=== PATIENT | female | born 2005 | race Caucasian/White ===

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

== ENCOUNTER 2025-02-11 14:30 | Outpatient (RCR) | payer OTHER, SELFPAY ==
--- NOTE | 2025-01-14 16:07 | OPREHPOC ---
Outpatient Therapy Plan of Care This is a Multidisciplinary Plan of Care that may contain components documented by all disciplines (PT, OT, and ST.) PT Problem 1 PT Problem #1 Knowledge Deficit PT Goal 1 Goal / Goal Update *indep with HEP Target Visit 8 PT Problem 2 PT Problem #2 Pain PT Goal 1 Goal / Goal Update *pt report pain at worst of 4/10 Target Visit 8 PT Problem 3 PT Problem #3 Impaired Strength PT Goal 1 Goal / Goal Update increase thoracic/scapular strength- to improve posture and stability to spine * pt perform R and L prone exercises x 20 reps Target Visit 8 PT Goal 2 Goal / Goal Update * pt stand without winging of L scapula Target Visit 8 PT Problem 4 PT Problem #4 Impaired Flexibility PT Goal 1 Goal / Goal Update * pt perform standing trunk rotation to L, 3x without an increase in pain reported Target Visit 8
--- NOTE | 2025-01-14 16:08 | PTOPEVAL1 ---
Assessment and note entered by Ludy Anderson, PT Evaluation Information Assessment Status Evaluation Diagnosis mid back pain Onset Nov 2024 Subjective Information gradually increase pain in back, without injury or trauma; chronic issues with back pain had surgery to remove scar tissue by [employer] in July 2024 with pelvic floor therapy after surgery; continue to have pain in pelvic floor, exercises not really help the pain R hand dominant limited with recreational activity- tennis, pickle ball, lifting children, lifting things at home had x ray by chiropractor-- nothing showed up; adjustment was done and made her pain worse-- did not go back for any treatments pt reports need to have MRI activity: 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 She reports history of chronic pelvic, low and mid back pain. Self assessment with the Oswestry rating of 38% limitation in activity level. Pain is increased with lifting, rotation of her trunk to L and more activity. 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 With the evaluation: poor standing position with R shoulder elevated and forward rotation with winging of L scapula; spasms over L thoracic paraspinals, weakness over thoracic musculature. Skilled PT services are indicated for modalities to decrease pain and spasms, therapeutic exercises to increase scapular/thoracic strength with education for HEP and posture. Plan of Care Interventions Electrical Stimulation,Hot Pack/Cold Pack,Manual Therapy,Neuro Re-education,Patient/Caregiver Education,Therapeutic Activities,Therapeutic Exercise,Ultrasound,Other Other Interventions taping PT Services Indicated Yes Treatment Frequency and 1-2x/wk for 8 visits Duration These treatments will address the objective and functional deficits as defined above. The patient will be advanced safely and appropriately in order for the patient to progress towards his/her prior level of function. Additional exercises will be introduced and as well as a comprehensive home exercise program upon discharge, if needed, ?to ensure carryover of functional gains achieved in the clinic. This treatment plan has been reviewed and agreement upon by the patient.
--- NOTE | 2025-02-11 15:20 | OPREHPOC ---
Outpatient Therapy Plan of Care This is a Multidisciplinary Plan of Care that may contain components documented by all disciplines (PT, OT, and ST.) PT Problem 1 PT Problem #1 Knowledge Deficit PT Goal 1 Goal / Goal Update *indep with HEP 02-11-25 d/c goal met Target Visit 8 Progress Met PT Problem 2 PT Problem #2 Pain PT Goal 1 Goal / Goal Update *pt report pain at worst of 4/10 02-11-25 d/c goal not met, 7/10 at worst Target Visit 8 Progress Not Met PT Problem 3 PT Problem #3 Impaired Strength PT Goal 1 Goal / Goal Update increase thoracic/scapular strength- to improve posture and stability to spine * pt perform R and L prone exercises x 20 reps 02-11-25 d/c goal met Target Visit 8 Progress Met PT Goal 2 Goal / Goal Update * pt stand without winging of L scapula 02-11-25 d/c goal not met Target Visit 8 Progress Not Met PT Problem 4 PT Problem #4 Impaired Flexibility PT Goal 1 Goal / Goal Update * pt perform standing trunk rotation to L, 3x without an increase in pain reported 02-11-25 d/c goal not met Target Visit 8 Progress Not Met
--- NOTE | 2025-02-11 15:20 | PTOPDC ---
Assessment and note entered by Ludy Anderson, PT Assessment Status Discharge Diagnosis mid back pain Onset Nov 2024 Subjective Information stretching hurts a little, but it helps; about the same, still have pain with twisting to the L; muscles have relaxed some with the treatments; want to finish with therapy and do the exercises on my own. going to call dr for appointment and want to get an MRI. 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 Compared to the initial evaluation: pain from 2-7/ 10 to 0-7/10; self assessment Oswestry back rating from 38 to 32% limitation in activity level continues to have pain over L mid thoracic with trunk rotation to L, with decreased motion; increase strength of scapular musculature; education for HEP and posture/body mechanics. The goals were partially achieved. Discharge PT. She is to continue with her HEP and contact her dr for follow up appointment. Plan of Care PT Services Indicated No
== END 2025-02-11 16:53 | disposition home or self-care (01) ==
LOC: ANHPT 14:30
PROVIDERS: PCP Emergency Medicine; Visit Provider Emergency Medicine
DX: M54.6 Pain in thoracic spine (principal)
CPT/HCPCS: 97014; 97110; 97140; 97161; 97530; G0283

== ENCOUNTER 2025-04-09 11:55 | Emergency (ER) | payer OTHER, SELFPAY ==
--- NOTE | ~2025-04-09 | CT_ITS ---
EXAM: CT abdomen pelvis w con - 04/09/2025 14:18 CDT History: 19 years old Female with RLQ pain TECHNIQUE: Multidetector CT of the abdomen and pelvis with intravenous contrast. Coronal and sagitta l reformats were also provided for review. Automatic exposure control was used for this study. CONTRAST: 100 cc of Optiray 350 was used for this study. COMPARISON: None Available. FINDINGS: VISUALIZED CHEST: Visualized lungs are clear. ABDOMEN and PELVIS: LIVER: Within normal limits. GALLBLADDER: No calcified gallstones. BILE DUCTS: No dilatation. SPLEEN: Within normal limits. PANCREAS: Within normal limits. ADRENAL GLANDS: Within normal limits. KIDNEYS and URETERS: No hydronephrosis or hydroureter. No nephroureterolithiasis. URINARY BLADDER: Within normal limits. STOMACH and BOWEL: No abnormal bowel wall thickening. No obstruction or pneumatosis. Normal appendix. REPRODUCTIVE ORGANS: Uterus is present. 3.5 x 3.4 cm cyst in the right adnexa. MESENTERY/PERITONEAL CAVITY: No free fluid or pneumoperitoneum. LYMPH NODES: No abdominal or pelvic lymphadenopathy. ABDOMINAL WALL: Within normal limits. VASCULATURE: Within normal limits. MUSCULOSKELETAL: Within normal limits. IMPRESSION: No evidence of acute pathology in the abdomen and pelvis. Specifically, normal appendix. 3.5 cm cyst in the right adnexa may be the cause of patient's pain. Pelvic ultrasound can be performed for furthe r evaluation, as clinically indicated. Reviewed, dictated and finalized at location A. IMPRESSION: No evidence of acute pathology in the abdomen and pelvis. Specifically, normal appendix. 3.5 cm cyst in the right adnexa may be the cause of patient's pain. P elvic ultrasound can be performed for further evaluation, as clinically indicat ed.
--- NOTE | 2025-04-09 12:00 | PC.NURSE ---
Pt unable to pee at this time. Given collection cup and informed of where the restroom is.
[2025-04-09 12:01] VITALS: O2SAT 99
[2025-04-09 12:04] VITALS: BP 131/83; PULSE 115; RESP 16; O2SAT 98
[2025-04-09 12:18] LABS: Basophils Percent Auto 0.4 % (0.2-1.2); Eosinophils Percent Auto 0.1 % (0-4.4); Hematocrit 42.3 % (37.0-47.0); Hemoglobin 14.1 g/dL (12.0-15.0); Immature Granulocyte Absolute 0.01 K/mm3 (0.00-0.031); Immature Granulocyte Percent A 0.1 % (0-0.5); Immature Platelet Fraction Pct 6.4 % (0.9-11.2); Lymphocytes Absolute Auto 2.25 K/mm3 (0.9-3.2); Lymphocytes Percent Auto 33.3 % (18.3-44.2); Mean Corpuscular HGB Conc 33.3 g/dl (32-36); Mean Corpuscular Hemoglobin 30.2 pg (26-34); Mean Corpuscular Volume 90.6 fl (80-100); Mean Platelet Volume 10.9 fl (7.4-10.4); Monocytes Absolute Auto 0.6 K/mm3 (0.1-0.6); Monocytes Percent Auto 8.4 % (2.6-8.5); Neutrophils Absolute Auto 3.9 K/mm3 (1.3-6.7); Neutrophils Percent Auto 57.7 % (45.5-73.1); Platelet Count Result 221 k/mm3 (150-375); Red Blood Count 4.67 M/mm3 (4.2-5.4); Red Cell Distribution Width 12.3 % (11.5-14.5); White Blood Count 6.8 K/mm3 (4.5-10.0)
[2025-04-09 12:26] LABS: Alanine Aminotransferase 24 U/L (6-35); Albumin Level 4.5 g/dL (3.5-5.1); Alkaline Phosphatase 60 U/L (38-126); Anion Gap 10 mmol/L (4-12); Aspartate Amino Transferase 37 U/L (14-36); Bilirubin,Total 1.1 mg/dL (0.2-1.3); Blood Urea Nitrogen 9 mg/dL (7-17); Calcium 9.2 mg/dL (8.4-10.2); Carbon Dioxide 23 mmol/L (22-30); Chloride 105 mmol/L (98-107); Estimated CRCL calculation 104 ml/min; Estimated Glomerular Filt Rate > 60; Glucose 101 mg/dL (65-110); Lipase 55 U/L (23-300); Potassium 3.6 mmol/L (3.4-5.0); Sodium 138 mmol/L (137-145); Total Protein 7.5 g/dL (6.3-8.2)
--- NOTE | 2025-04-09 12:46 | ED_ITS ---
HPI - Abdominal Pain General Chief Complaint: Abdominal Pain Stated Complaint: RLQ pain in the morning x 2 days, nausea Time Seen by Provider: 04/09/25 11:59 History of Present Illness HPI narrative: 19-year-old female who is on spironolactone for acne presents to the ER complaining of right lower quadrant/pelvic pain for 3 days. States the pain is worse in the morning and gradually improves throughout the day. Patient denies fever. Denies radiating pain. Last menstrual period 6 weeks ago. Denies dysuria, urinary frequency urgency. Denies vaginal discharge. Denies constipation. States has had several episodes of nonbloody diarrhea recently. Related Data Allergies Allergy/AdvReac Type Severity Reaction Status Date / Time No Known Allergies Allergy Verified 12/28/22 17:46 Review of Systems 2 Review of Systems: All systems reviewed & are unremarkable except as noted in HPI and below PMFSH Past Medical History Medical History (Updated 04/09/25 @ 14:46 by Luis Carlos Clark APRN) No active medical problems Social History Social History (Updated 12/28/22 @ 17:11 by Stephy Guzmán PA-C) Smoking status: Never smoker Exam 2 Const: General: healthy appearing, no acute distress and alert Nutritional Appearance: well nourished and thin Orientation/consciousness: patient oriented x3 HENMT: Head: normal to inspection Ears: TM's normal bilaterally F jenny/Nose/Sinus: Normal external nose present Eyes: Conjunctivae: conjunctivae normal Pupils: Equal, round and reactive pupils present EOM: EOMs intact bilaterally Resp: Effort & Inspection: normal respiratory effort Auscultation: clear to auscultation bilaterally Cardio: Rate: regular rate Rhythm: regular rhythm GI: GI Palp: Yes Tenderness to palpation present (GI) Auscultation: normal bowel sounds Other: Right lower quadrant/pelvic tenderness. Negative psoas and obturator signs. Negative heel strike Skin: General skin exam: normal color Neuro: General: patient oriented x3, moves all extremities, no focal motor deficits and CN's II-XI intact bilaterally Extrem: General: normal to inspection Psych: Mental Status: mental status grossly normal Affect: normal affect Attitude: cooperative Course Vital Signs Vital signs: Vital Signs Pulse Oximetry 99 04/09/25 12:01 Oxygen Delivery Room Air 04/09/25 12:01 Pulse Rate 115 H 04/09/25 12:04 Respiratory Rate 16 04/09/25 12:04 Blood Pressure 131/83 04/09/25 12:04 Pulse Oximetry 98 04/09/25 12:04 Oxygen Delivery Room Air 04/09/25 12:01 MDM - Abdominal Pain MDM Narrative Medical decision making narrative: 19-year-old well-appearing female present to the ER complaining of right lower quadrant/pelvic abdominal pain for the past couple of days. Lab work was reassuring. CT scan shows evidence of a 3.5 cm ovarian cyst. This is likely the cause of the patient's pain. Differential include appendicitis, ovarian cyst, acute cystitis, pyelonephritis, constipation. Patient will be discharged home stable condition laboratory sent to follow-up with OBGYN. Lab Data 04/09/25 12:10 04/09/25 12:10 Labs: Lab Results 04/09/25 04/09/25 04/09/25 Range/Units 12:10 12:51 12:57 WBC 6.8 (4.5-10.0) K/mm3 RBC 4.67 (4.2-5.4) M/mm3 Hgb 14.1 (12.0-15.0) g/dL Hct 42.3 (37.0-47.0) % MCV 90.6 (80-100) fl MCH 30.2 (26-34) pg MCHC 33.3 (32-36) g/dl RDW 12.3 (11.5-14.5) % Plt Count 221 D (150-375) k/mm3 MPV 10.9 H (7.4-10.4) fl Immature Gran % (Auto) 0.1 (0-0.5) % Neut % (Auto) 57.7 (45.5-73.1) % Lymph % (Auto) 33.3 (18.3-44.2) % Alfalfa % (Auto) 8.4 (2.6-8.5) % Eos % (Auto) 0.1 (0-4.4) % Baso % (Auto) 0.4 (0.2-1.2) % Lymph # (Auto) 2.25 (0.9-3.2) K/mm3 Alfalfa # (Auto) 0.6 (0.1-0.6) K/mm3 Eos # (Auto) 0.0 (0-0.3) K/mm3 Baso # (Auto) 0.0 (0.0-0.1) K/mm3 Abs Immat Gran (auto) 0.01 (0.00-0.031) K/mm3 Absolute Neuts (auto) 3.9 (1.3-6.7) K/mm3 Absolute Nucleated RBC 0.000 (0.0-0.012) K/mm3 Nucleated RBC % 0.0 (0.0-0.2) % % Immature Plt Fraction 6.4 (0.9-11.2) % Sodium 138 (137-145) mmol/L Potassium 3.6 (3.4-5.0) mmol/L Chloride 105 (98-107) mmol/L Carbon Dioxide 23 (22-30) mmol/L Anion Gap 10 (4-12) mmol/L BUN 9 (7-17) mg/dL Creatinine 0.57 L (0.7-1.0) mg/dL Estim Creat Clear Calc 104 ml/min Estimated GFR > 60 (59 - ) Glucose 101 (65-110) mg/dL Calcium 9.2 (8.4-10.2) mg/dL Total Bilirubin 1.1 (0.2-1.3) mg/dL AST 37 H (14-36) U/L ALT 24 (6-35) U/L Alkaline Phosphatase 60 (38-126) U/L Total Protein 7.5 (6.3-8.2) g/dL Albumin 4.5 (3.5-5.1) g/dL Lipase 55 (23-300) U/L Urine Color Yellow (Yellow) Urine Appearance Clear (Clear) Urine pH 6.0 (5.0-9.0) Ur Specific [place] 1.008 (1.001-1.035) Urine Protein Negative (Negative) mg/dL Urine Glucose (UA) Negative (Negative) mg/dL Urine Ketones Trace H (Negative) mg/dL Ur Blood (Man) Negative (Negative) Urine Nitrate Negative (Negative) Urine Bilirubin Negative (Negative) Urine Urobilinogen 0.2 (<2.0) mg/dL Leukocyte Esterase Rfl Negative (Negative) GABY/UL POC Urine HCG, Qual Negative (Negative) Imaging Data Radiologist's impression: ITS Impressions Abdomen/Pelvis CT 04/09/25 14:34 IMPRESSION: No evidence of acute pathology in the abdomen and pelvis. Specifically, normal appendix. 3.5 cm cyst in the right adnexa may be the cause of patient's pain. Pelvic ultrasound can be performed for further evaluation, as clinically indicated. Discharge Plan Discharge Clinical Impression: Cyst of right ovary Patient Disposition: Home Condition: Stable Instructions: Antibiotic Form, Ovarian Cyst (ED) Patient Language: Slovak Prescriptions: New naproxen 500 mg tablet 500 mg PO BID Qty: 20 0RF Follow-up/Referrals: Jaxon Mathew MD [Primary Care Provider] - Joey Hollis MD [Physician] - Time of Disposition: 14:46
[2025-04-09 12:58] LABS: BEDSIDEPREGUCG Negative (Negative)
[2025-04-09 13:00] LABS: Add Urine Microscopic? NO; Appearance Urine Clear (Clear); Bilirubin Urine Negative (Negative); Blood Urine Negative (Negative); Color Urine Yellow (Yellow); Glucose Urine UA Negative (Negative); Ketones Urine Trace mg/dL (Negative); Leukocyte Esterase Ur Negative LEU/UL (Negative); Nitrate Urine Negative (Negative); Protein Urine Negative (Negative); Specific Grav Ur 1.008 (1.001-1.035); Urobilinogen Urine 0.2 mg/dL (<2.0)
[2025-04-09] MEDS: SODIUM CHLORIDE 0.9% IV 1,000 ML 999 ML IV CONT (15:01)
[2025-04-09] MEDS: methylPREDNISolone SOD SUCC 125 MG VIAL IV PUSH (15:02)
[2025-04-09] MEDS: diphenhydrAMINE HCl INJ 50 MG/ML VIAL 25 MG IV PUSH (15:03)
[2025-04-09] MEDS: KETOROLAC 30 MG/ML VIAL (*BKC) IV PUSH (15:04)
[2025-04-09] MEDS: FAMOTIDINE 20 MG/2 ML VIAL IV PUSH (15:06)
[2025-04-09 15:50] VITALS: PULSE 82; RESP 17; O2SAT 99
== END 2025-04-09 15:52 | disposition home or self-care (01) ==
PROVIDERS: Emergency Medicine; Emergency Provider Nurse Practitioner Family; PCP Emergency Medicine
DX: N83.201 Unspecified ovarian cyst, right side (principal)
CPT/HCPCS: 36415; 74177; 80053; 81003; 81025; 83690; 85025; 85055; 96361; 96374; 96375; 99284; J1200; J1885; J2919; J7030; Q9967

== ENCOUNTER 2025-04-20 17:36 | Emergency (ER) | payer OTHER, SELFPAY ==
[2025-04-20 17:41] VITALS: BP 134/78; PULSE 85; RESP 16; TEMP 37.1; O2SAT 100
--- NOTE | 2025-04-20 18:43 | ED.GENADULT ---
HPI - General Adult General Chief complaint: Skin/Abscess/Foreign Body Stated complaint: Sore Throat Time Seen by Provider: 04/20/25 18:18 Source: patient and RN notes reviewed Mode of arrival: ambulatory Limitations: no limitations History of Present Illness HPI narrative: Patient presents today complaining of scratchiness in irritation in her throat that is worse when she swallows with some throat tightness. Symptoms started after she swallowed water several times while she was learning how to paddle board in a [place] 2 and 3 days ago. States she fell upwards of 50 times swallowing water several times and coughing profusely. States she also tried any mouthwash 2 new snacks last night, is unsure if this is exacerbating her symptoms. She denies shortness of breath, fever, or any additional symptoms. Reports she is not having any difficulty eating/swallowing. She has tried Benadryl and Zyrtec. Related Data Home Medications ?Medication ?Instructions ?Recorded ?Confirmed ?Last Taken ?Type spironolactone 50 mg tablet mg 04/20/25 Unknown History Allergies Allergy/AdvReac Type Severity Reaction Status Date / Time Iodinated Contrast Media Allergy Intermediate Hives Verified 04/20/25 18:14 [facility] Past Medical History Medical History (Updated 04/20/25 @ 18:37 by Vee Harper, [facility], ) No active medical problems Social History Social History (Updated 12/28/22 @ 17:11 by Stephy Guzmán PA-C) Smoking status: Never smoker Comments At time of signature, I have reviewed and agree with nursing past medical, surgical, social and family history unless otherwise noted. Please see nursing chart for further information. There is no relevant family history pertinent to the presenting complaint Exam Narrative: GENERAL: Well-appearing, well-nourished, and in no acute distress. HEAD: Normocephalic, atraumatic. EYES: EOMI. No redness or drainage. Conjunctivae normal. ENT: Mucous membranes pink and moist. Nares clear. No rhinorrhea. TMs normal bilaterally. Throat normal. Uvula midline. NECK: Normal AROM. Supple. No lymphadenopathy. CHEST: No respiratory distress. Clear to auscultation. HEART: Regular rate and rhythm. No murmur appreciated. EXTREMITIES: Normal range of motion. No edema. SKIN: Warm, dry. Capillary refill normal. Normal skin turgor. Papular rash to chin without evidence of bacterial infection NEURO: No focal deficits. Alert and oriented x3. Gait steady. PSYCH: Normal affect. No signs of depression or anxiety. Course Course Level of Care: Express Care Visit Vital Signs Vital signs: Vital Signs Temperature 98.8 F 04/20/25 17:41 Pulse Rate 85 04/20/25 17:41 Respiratory Rate 16 04/20/25 17:41 Blood Pressure 134/78 04/20/25 17:41 Pulse Oximetry 100 04/20/25 17:41 Oxygen Delivery Room Air 04/20/25 17:41 Temperature 98.8 F 04/20/25 17:41 Pulse Rate 85 04/20/25 17:41 Respiratory Rate 16 04/20/25 17:41 Blood Pressure 134/78 04/20/25 17:41 Pulse Oximetry 100 04/20/25 17:41 Oxygen Delivery Room Air 04/20/25 17:41 Reviewed Medical Decision Making MDM Narrative Medical decision making narrative: 19-year-old female patient complaining of scratchiness in her throat, throat tightness after coughing profusely many times over 2 days after falling into a [place] in swallowing copious amounts of water. Throat symptoms are likely due to aggressive frequent coughing. she has been taking Benadryl. Patient declined steroid injection to help with inflammation. Recommend starting an NSAID. Physical exam normal. Symptoms likely unrelated to new mouthwash and snacks as they did began before trying them. Patient comfortable monitoring symptoms at home with follow-up if needed. Differential Diagnosis Differential Diagnosis: Allergic reaction, pharyngitis, esophagitis Vital Signs Vital Signs: Vital Signs Temperature 98.8 F 04/20/25 17:41 Pulse Rate 85 04/20/25 17:41 Respiratory Rate 16 04/20/25 17:41 Blood Pressure 134/78 04/20/25 17:41 Pulse Oximetry 100 04/20/25 17:41 Oxygen Delivery Room Air 04/20/25 17:41 Temperature 98.8 F 04/20/25 17:41 Pulse Rate 85 04/20/25 17:41 Respiratory Rate 16 04/20/25 17:41 Blood Pressure 134/78 04/20/25 17:41 Pulse Oximetry 100 04/20/25 17:41 Oxygen Delivery Room Air 04/20/25 17:41 Critical Care Time Critical Care Time Critical Care Time: No Discharge Plan Discharge Clinical Impression: Throat irritation Patient Disposition: Home Condition: Stable Additional Instructions: Continue the Benadryl or another antihistamine at home such as Zyrtec, Claritin, or [place]. At an anti-inflammatory such as Aleve or ibuprofen. Follow-up with your PCP with any additional concerns. Your blood pressure was elevated above 120/80 today at Urgent Care. This puts you above the threshold for follow up. Please schedule a followup visit with your personal physician as soon as possible, for further evaluation and treatment. Even blood pressure exceeding 120/80 may indicate pre-hypertension. Patient Language: Romansh Prescriptions: No Action spironolactone 50 mg tablet Follow-up/Referrals: PHYSICIAN,SANITARY PLUMBER [Primary Care Provider] - Time of Disposition: 18:37
== END 2025-04-20 18:38 | disposition home or self-care (01) ==
PROVIDERS: Emergency Provider Nurse Practitioner
DX: R07.0 Pain in throat (principal)
CPT/HCPCS: 99211; G0463